=== PATIENT | male | born 1965 | race Caucasian/White ===

== ENCOUNTER → 2022-07-23 | Outpatient (CLI) | payer OTHER ==
--- NOTE | 2022-07-23 18:57 | CT ---
EXAMINATION TYPE: CT upper extremity LT wo con CT DLP: 197.6 mGycm, Automated exposure control for dose reduction was used. DATE OF EXAM: 07/23/2022 6:52 PM COMPARISON: None CLINICAL INDICATION:Male, 56 years old with history of S62.015A NONDISP FX OF DISTAL POLE OF NAVICULA R INGRID; PHH, fx of scaphoid TECHNIQUE: Axial images were obtained of the left upper extremity without the use of IV contrast. Ad ditional coronal and sagittal reformatted images and soft tissue and bone window were obtained for re view. 3-D reconstruction was created on a separate workstation. FINDINGS: There is no evidence of fracture, subluxation, or dislocation. No periosteal reaction or ca llus formation identified. No significant soft tissue swelling or joint effusion is identified. No f ocal muscular atrophy or edema is identified. No radiopaque foreign body identified. IMPRESSION: No acute fracture or dislocation.
== END | disposition home or self-care (01) ==
LOC: RADCTMAIN 18:26
PROVIDERS: ATTEND Family Medicine
DX: S62.015A Nondisplaced fracture of distal pole of navicular [scaphoid] bone of left wrist, initial encounter for closed fracture (principal); X58.XXXA Exposure to other specified factors, initial encounter